=== PATIENT | female | born 1960 | race Caucasian/White ===

== ENCOUNTER 2016-08-24 02:00 | Emergency (ER) | payer OTHER ==
[2016-08-24 02:08] VITALS: BP 129/88
[2016-08-24 02:22] LABS: BILIRUBIN,URINE NEGATIVE (NEGATIVE); UA w/ MICROSCOPIC CHARGE YES
[2016-08-24 02:26] LABS: WBC,URINE >25 /HPF (0-5)
[2016-08-24 02:27] LABS: UR CULTURE IF IND INDICATED
[2016-08-24] MEDS ORDERED: SULFAM/TRIM 800/160 Prepack 2 PO ONE ×2 (02:29→02:32)
[2016-08-24] MEDS ORDERED: PHENAZOPYRIDINE 100 MG TABLETS (Prepack) PO ONE (02:32)
--- NOTE | 2016-08-24 02:32 | ED Physician Documentation ---
PD HPI FEMALE - Stated complaint Stated Complaint: FEMALE - Chief complaint Chief Complaint: General - History obtained from History obtained from: Patient - History of Present Illness Timing - onset: Enter time (0), Last night Timing - duration: Hours Timing - details: Abrupt onset, Still present Associated symptoms: Dysuria, Urinary frequency Contributing factors: No: Similar symptoms before: Diagnosis (UTI) Recently seen: Not recently seen - Additional information Additional information: 56 y/o female awoke with acute bladder spasm and painful urination that awoke her from sleep. She has not had back pain nausea or fever with this. Review of Systems Constitutional: reports: Chills. denies: Fever Eyes: denies: Decreased vision Ears: denies: Ear pain Nose: denies: Congestion Throat: denies: Sore throat Cardiac: denies: Chest pain / pressure Respiratory: denies: Dyspnea, Cough GI: reports: Diarrhea. denies: Abdominal Pain, Nausea, Vomiting, Constipation : reports: Dysuria, Frequency Skin: denies: Rash Musculoskeletal: denies: Neck pain, Back pain PD PAST MEDICAL HISTORY - Past Medical History Past Medical History: Yes - Past Surgical History Past Surgical History: Yes General: Appendectomy - Present Medications Home Medications: Ambulatory Orders Medication Instructions Recorded Confirmed Eszopiclone [Lunesta] 3 mg PO DAILY 08/24/16 08/24/16 Levothyroxine Sodium [Synthroid] 100 mcg PO DAILY 08/24/16 08/24/16 Nortriptyline [Pamelor] 25 mg PO DAILY 08/24/16 08/24/16 Sulfamethoxazole/Trimethoprim 1 each PO BID #10 tablet 08/24/16 [Sulfamethoxazole-Tmp Ds Tablet] - Allergies Allergies/Adverse Reactions: Allergies Allergy/AdvReac Type Severity Reaction Status Date / Time iodine Allergy Rash Verified 08/24/16 02:09 Penicillins Allergy Anaphylaxis Verified 08/24/16 02:09 silver Allergy Rash Verified 08/24/16 02:09 - Social History Does the pt smoke?: No Smoking Status: Never smoker Does the pt drink ETOH?: Yes ETOH Use: Wine Does the pt have substance abuse?: No - Immunizations Immunizations are current?: Yes - POLST Patient has POLST: No PD ED PE NORMAL - Vitals Vital signs reviewed: Yes (hypertensive ) - General General: Alert and oriented X 3, No acute distress, Well developed/nourished - HEENT HEENT: Atraumatic - Respiratory Respiratory: No respiratory distress - Back Back: No CVA TTP, No spinal TTP - Derm Derm: Normal color, Warm and dry, No rash - Extremities Extremities: No deformity, No edema - Neuro Neuro: No motor deficit, No sensory deficit - Psych Psych: Normal mood, Normal affect Results - Vitals Vitals: Vital Signs - 24 hr 08/24/16 02:04 Temperature 36.5 C Heart Rate 71 Respiratory 16 Rate Blood Pressure 129/88 H O2 Saturation 100 Oxygen O2 Source Room air - Labs Labs: Laboratory Tests 08/24/16 02:15 Urine Color YELLOW Urine Clarity CLEAR Urine pH 7.0 Ur Specific [place] Cbc Base <=1.005 Urine Protein NEGATIVE Urine Glucose (UA) NEGATIVE Urine Ketones NEGATIVE Urine Occult Blood LARGE H Urine Nitrite NEGATIVE Urine Bilirubin NEGATIVE Urine Urobilinogen 0.2 (NORMAL) Ur Leukocyte Esterase MODERATE H Urine RBC 6-10 H Urine WBC >25 H Ur Squamous Epith Cells RARE Squamous Urine Bacteria Few Ur Microscopic Review INDICATED Urine Culture Comments INDICATED PD MEDICAL DECISION MAKING - ED course Complexity details: reviewed results, considered differential, d/w patient ED course: 56 y/o female with acute UTI has work to blame for not being able to get to the bathroom in a timely fashion. She is given a pre-rebecca of pyridium septra. Departure - Departure Disposition: 01 Home, Self Care Clinical Impression: Urinary tract infection Qualifiers: Urinary tract infection type: acute cystitis Hematuria presence: with hematuria Qualified Code(s): N30.01 - Acute cystitis with hematuria Condition: Stable Instructions: ED UTI Cystitis Female Follow-Up: Delmar Traore MD [Primary Care Provider] - Prescriptions: Sulfamethoxazole/Trimethoprim [Sulfamethoxazole-Tmp Ds Tablet] 1 each PO BID # 10 tablet
[2016-08-24] MEDS ORDERED: PHENAZOPYRIDINE 100 MG TABLETS (Prepack) PO SCH (06:00)
== END 2016-08-24 02:43 | disposition home or self-care (01) ==
LOC: ED 02:00
DX: N30.01 Acute cystitis with hematuria (principal)
CPT/HCPCS: 81001; 81003; 87077; 87086; 99283

== ENCOUNTER 2017-06-08 08:27 | Emergency (ER) | payer OTHER ==
[2017-06-08 09:44] LABS: BASOPHILS # (AUTO) 0.1 10^3/uL (0.0-0.1); BASOPHILS % (AUTO) 0.6 %; EOSINOPHILS # (AUTO) 0.3 10^3/uL (0.0-0.7); EOSINOPHILS % (AUTO) 2.7 %; HGB - HEMOGLOBIN 12.8 g/dL (12.0-16.0); LYMPHOCYTES # (AUTO) 2.8 10^3/uL (1.5-3.5); LYMPHOCYTES % (AUTO) 24.4 %; MEAN CORPUSCULAR HEMOGLOBIN 29.6 pg (27.0-31.0); MEAN CORPUSCULAR HGB CONC 34.1 g/dL (32.0-36.0); MEAN PLATELET VOLUME 8.6 fL (7.9-10.8); MONOCYTES # (AUTO) 0.8 10^3/uL (0.0-1.0); MONOCYTES % (AUTO) 7.1 %; NEUTROPHILS # (AUTO) 7.4 10^3/uL (1.5-6.6); NEUTROPHILS % (AUTO) 65.2 %; PLT - PLATELET COUNT 270 10^3/uL (130-450); RED BLOOD COUNT 4.33 10^6/uL (4.20-5.40); RED CELL DISTRIBUTION WIDTH 12.2 % (12.0-15.0); WHITE BLOOD COUNT 11.4 x10^3/uL (4.8-10.8)
[2017-06-08 09:52] LABS: ALBUMIN 4.6 g/dL (3.2-5.5); ALBUMIN/GLOBULIN RATIO 1.5 (1.0-2.2); BILIRUBIN,TOTAL 0.5 mg/dL (0.2-1.0); CALCIUM 9.2 mg/dL (8.5-10.3); CREATININE 0.7 mg/dL (0.4-1.0); TOTAL PROTEIN 7.7 g/dL (6.7-8.2)
--- NOTE | 2017-06-08 10:06 | XRAY Report ---
EXAM: CHEST RADIOGRAPHY EXAM DATE: 06/08/2017 09:58 AM. CLINICAL HISTORY: Acute onset right chest pain. Cough. COMPARISON: None. TECHNIQUE: 2 views. FINDINGS: Lungs/Pleura: No focal opacities evident. No pleural effusion. No pneumothorax. Normal volumes. Mediastinum: Heart size is normal. Aorta is mildly tortuous. Other: Degenerative changes of the thoracic spine. No acute osseous abnormalities. Levoscoliosis of t he thoracic spine. IMPRESSION: 1. No acute disease in the chest. [facility] Referring Provider Line: [phone] SITE ID: [id number]
--- NOTE | 2017-06-08 10:12 | ED Physician Documentation ---
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 denies: Neck pain, Back pain , Extremity swelling Endocrine: denies: Easy bruising / bleeding Immunocompromised: denies: Immunocompromised PD PAST MEDICAL HISTORY - Past Surgical History Past Surgical History: Yes General: Appendectomy - Present Medications Home Medications: Ambulatory Orders Medication Instructions Recorded Confirmed Eszopiclone [Lunesta] 3 mg PO DAILY 08/24/16 08/24/16 Levothyroxine Sodium [Synthroid] 100 mcg PO DAILY 08/24/16 08/24/16 Indomethacin [Indocin] 25 mg PO TIDWM PRN #21 capsule 06/08/17 - Allergies Allergies/Adverse Reactions: Allergies Allergy/AdvReac Type Severity Reaction Status Date / Time iodine Allergy Rash Verified 06/08/17 08:38 Penicillins Allergy Anaphylaxis Verified 06/08/17 08:38 silver Allergy Rash Verified 06/08/17 08:38 - Social History Does the pt smoke?: No Smoking Status: Never smoker Does the pt drink ETOH?: Yes Does the pt have substance abuse?: No - Immunizations Immunizations are current?: Yes - POLST Patient has POLST: No PD ED PE NORMAL - Vitals Vital signs reviewed: Yes - HEENT HEENT: Atraumatic - Neck Neck: Supple, no meningeal sign - Cardiac Cardiac: RRR - Respiratory Respiratory: No respiratory distress, Clear bilaterally - Abdomen Abdomen: Soft, Non tender - Derm Derm: Normal color - Extremities Extremities: No edema, No calf tenderness / cord - Neuro Neuro: Alert and oriented X 3 Results - Vitals Vitals: Vital Signs - 24 hr 03/29/18 03/29/18 03/29/18 08:31 09:13 11:09 Temperature 36.5 C 37.2 C Heart Rate 81 78 Respiratory 16 16 Rate Blood Pressure 137/88 H 121/78 Blood Pressure 126/82 H [Left] Blood Pressure 126/83 H [Right] O2 Saturation 99 99 06/08/17 13:26 Temperature Heart Rate 80 Respiratory 12 Rate Blood Pressure 120/81 H Blood Pressure [Left] Blood Pressure [Right] O2 Saturation 100 Oxygen O2 Source Room air - EKG (time done) 0837 Rate: Rate (enter#) (77) Rhythm: NSR [place]: Normal Intervals: Normal DC QRS: Normal Ischemia: Normal ST segments - Labs Labs: Laboratory Tests 06/08/17 06/08/17 06/08/17 09:25 09:25 09:25 WBC 11.4 H RBC 4.33 Hgb 12.8 Hct 37.7 MCV 87.0 MCH 29.6 MCHC 34.1 RDW 12.2 Plt Count 270 MPV 8.6 Neut # 7.4 H Lymph # 2.8 [place] # 0.8 Eos # 0.3 Baso # 0.1 Absolute Nucleated RBC 0.00 Nucleated RBC % 0.0 D-Dimer Sodium 137 Potassium 3.5 Chloride 102 Carbon Dioxide 29 Anion Gap 6.0 BUN 14 Creatinine 0.7 Estimated GFR (MDRD) 87 L Glucose 99 Calcium 9.2 Total Bilirubin 0.5 AST 25 ALT 21 Alkaline Phosphatase 69 Troponin I < 0.04 Total Protein 7.7 Albumin 4.6 Globulin 3.1 Albumin/Globulin Ratio 1.5 Lipase 30 06/08/17 06/08/17 12:20 13:29 WBC RBC Hgb Hct MCV MCH MCHC RDW Plt Count MPV Neut # Lymph # [place] # Eos # Baso # Absolute Nucleated RBC Nucleated RBC % D-Dimer < 200.0 L Sodium Potassium Chloride Carbon Dioxide Anion Gap BUN Creatinine Estimated GFR (MDRD) Glucose Calcium Total Bilirubin AST ALT Alkaline Phosphatase Troponin I < 0.04 Total Protein Albumin Globulin Albumin/Globulin Ratio Lipase - Rads (name of study) CXR Radiology: See rad report (NACPD) CT chest Radiology: See rad report (clear lungs, no adenopathy, nl heart size, no effusion, no hemaotma, degen changes) PD MEDICAL DECISION MAKING - ED course ED course: R sided pleurisy no pna on CXR or CT pt with all to iodine so non con CT which was nl and neg d dimer - feel PE adequately ruled out no aneurysm on CT pain is pressure in nature so less likely to be dissection - as above iodine allergy precludes angio but non con CT nl no GB TTP on exam will check a 2nd trop but seems pt has pleurisy NOS will tx symptomatically and dc Departure - Departure Disposition: Home, Self Care Clinical Impression: Pleurisy Condition: Good Instructions: ED Chest Pain Pleurisy Prescriptions: Indomethacin [Indocin] 25 mg PO TIDWM PRN #21 capsule PRN Reason: Pain Comments: All of your tests came back reassuring The EKG and two rounds of blood tests for your heart do not suggest a heart attack. The xray and CT do not show a collapsed lung, a lung infection, or fluid build up around the lungs or heart The blood work and CT also do not indicate a blood clot in your lungs And your abdomen was non tender so i do not think this is an abdominal problem such as gallstones It sounds like you have pleurisy which is inflammation of the lining around chest cavity - it can be very painful but is not dangerous I think it is safe for you to go home with anti-inflammatory pain medications and a note to be off work and rest for a few days. Pleas follow up with your PMD for a recheck if not better by Monday. Return to the ER if worse Forms: Activity restrictions
--- NOTE | 2017-06-08 12:58 | CT Report ---
EXAM: CT CHEST EXAM DATE: 06/08/2017 12:37 PM. CLINICAL HISTORY: Shortness of air. Chest pain for 2 days. Shortness of breath. Iodine allergy. COMPARISONS: 06/08/2017. TECHNIQUE: Routine helical CT imaging was performed through the chest. IV contrast: None. Reconstruct ions: Coronal and sagittal. In accordance with CT protocol optimization, one or more of the following dose reduction techniques w ere utilized for this exam: automated exposure control, adjustment of mA and/or KV based on patient s ize, or use of iterative reconstructive technique. FINDINGS: Lungs/Pleura: No nodules, bronchial thickening, consolidation, or edema. Pulmonary vasculature is nor mal. No pericardial or pleural effusion. No pneumothorax. Mediastinum: The visualized thyroid gland is unremarkable. Heart size is normal. No enlarged mediasti nal or hilar lymph nodes are seen on these unenhanced images. No mediastinal hematoma. Thoracic aorta is normal in caliber. Bones: Degenerative changes of the thoracic spine. No acute osseous abnormalities. No bony lesions. Visualized Abdomen: Included portions of the liver, gallbladder, spleen, pancreas, adrenals and kidne ys are unremarkable. Included portions of the stomach, small bowel and colon are unremarkable. Other: None. IMPRESSION: 1. Clear lungs. No consolidation. 2. No thoracic adenopathy. 3. No mediastinal hematoma. Normal heart size. 4. Mild degenerative changes of the thoracic spine. No acute osseous abnormalities. [facility] Referring Provider Line: [phone] SITE ID: [id number]
[2017-06-08] MEDS ORDERED: KETOROLAC 60 MG/2 ML VIAL IVP STA (13:18)
[2017-06-08] MEDS ORDERED: oxyCOD/ACETAMIN 5 MG/325 MG TABLET PO STA (14:28)
[2017-06-08 14:53] VITALS: BP 127/77
== END 2017-06-08 14:51 | disposition home or self-care (01) ==
LOC: ED 08:27
DX: R09.1 Pleurisy (principal)
CPT/HCPCS: 36415; 71046; 71250; 80053; 83690; 84484; 85025; 85379; 93005; 96374; 99283; 99284; A9270

== ENCOUNTER 2018-05-14 08:57 | Emergency (ER) | payer OTHER ==
--- NOTE | 2018-05-14 10:19 | ED Physician Documentation ---
PD HPI ABD PAIN - Stated complaint Stated Complaint: PAINFUL TO WALK/STAND - Chief complaint Chief Complaint: Abd Pain - History obtained from History obtained from: Patient - History of Present Illness Timing - onset: How many days ago Timing - details: Abrupt onset, Still present Quality: Aching, Pain Location: RLQ Radiation: No: Lower back Improved by: No: Eating Worsened by: Moving (with walking, and with leg flexion). No: Eating Associated symptoms: Other (denies injury to leg nor abdomen). No: Fever, Nausea, Vomiting, Diarrhea, Constipation, Dysuria, Chest pain Similar symptoms before: Has not had sx before Recently seen: Not recently seen Review of Systems Constitutional: denies: Fever Nose: denies: Rhinorrhea / runny nose, Congestion Throat: denies: Sore throat Respiratory: denies: Cough GI: reports: Abdominal Pain. denies: Nausea, Constipation, Diarrhea : denies: Dysuria, Frequency, Discharge, Vaginal bleeding Skin: denies: Rash, Lesions Neurologic: denies: Focal weakness, Near syncope PD PAST MEDICAL HISTORY - Past Medical History Cardiovascular: None Respiratory: None Neuro: None Endocrine/Autoimmune: HyPOthyroidism GI: None - Past Surgical History Past Surgical History: Yes General: Appendectomy - Present Medications Home Medications: Ambulatory Orders Medication Instructions Recorded Confirmed Eszopiclone [Lunesta] 3 mg PO DAILY PM 08/24/16 05/14/18 Levothyroxine Sodium [Synthroid] 100 mcg PO DAILY 08/24/16 05/14/18 Dexamethasone [Decadron] 4 mg PO DAILY #5 tablet 05/14/18 Naproxen 500 mg PO BID #20 tablet 05/14/18 Tramadol HCl 50 mg PO Q6H PRN #25 tablet 05/14/18 - Allergies Allergies/Adverse Reactions: Allergies Allergy/AdvReac Type Severity Reaction Status Date / Time iodine Allergy Rash Verified 05/14/18 09:41 Penicillins Allergy Anaphylaxis Verified 05/14/18 09:41 silver Allergy Rash Verified 05/14/18 09:41 - Social History Does the pt smoke?: No Smoking Status: Never smoker Does the pt drink ETOH?: Yes Does the pt have substance abuse?: No - Immunizations Immunizations are current?: Yes - POLST Patient has POLST: No PD ED PE NORMAL - Vitals Vital signs reviewed: Yes - General General: Alert and oriented X 3, Well developed/nourished - HEENT HEENT: Ears normal, Pharynx benign - Neck Neck: Supple, no meningeal sign, No adenopathy - Cardiac Cardiac: RRR, No murmur - Respiratory Respiratory: Clear bilaterally - Abdomen Abdomen: Normal bowel sounds, Soft, Non distended, No organomegaly, Other (RLQ tender with guarding, but no percussion tenderness. No inguinal hernia nor adenopathy. ) - Female Female : Deferred - Rectal Rectal: Deferred - Back Back: No CVA TTP - Derm Derm: Normal color, Warm and dry, No rash Results - Vitals Vitals: Vital Signs - 24 hr 05/14/18 05/14/18 05/14/18 09:11 11:23 12:38 Temperature 36.4 C L 36.4 C L Heart Rate 98 89 75 Respiratory 14 18 16 Rate Blood Pressure 116/82 H 113/74 103/76 O2 Saturation 97 92 99 Oxygen O2 Source Room air - Labs Labs: Laboratory Tests 05/14/18 05/14/18 10:10 10:10 WBC 10.0 RBC 4.39 Hgb 13.1 Hct 38.4 MCV 87.3 MCH 29.9 MCHC 34.2 RDW 12.9 Plt Count 247 MPV 8.4 Neut # (Auto) 7.6 H Lymph # (Auto) 1.6 [place] # (Auto) 0.7 Eos # (Auto) 0.0 Baso # (Auto) 0.1 Absolute Nucleated RBC 0.00 Nucleated RBC % 0.0 Sodium 139 Potassium 3.9 Chloride 102 Carbon Dioxide 26 Anion Gap 11.0 BUN 13 Creatinine 0.8 Estimated GFR (MDRD) 74 L Glucose 101 H Calcium 9.3 Total Bilirubin 1.3 H AST 20 ALT 17 Alkaline Phosphatase 60 Total Protein 7.9 Albumin 4.6 Globulin 3.3 Albumin/Globulin Ratio 1.4 Lipase 29 - Rads (name of study) abd/pelvic CT Radiology: Prelim report reviewed (no acute process seen), See rad report PD MEDICAL DECISION MAKING - ED course Complexity details: reviewed results (normal CT. Diverticula without -itis. s/p appy. no stones, mass, abscess), considered differential (s/p appy, so not that, but consider diverticulitis, kidney stone, UTI, psoas abscess or hematoma, mass, etc. ), d/w patient Departure - Departure Disposition: 01 Home, Self Care Clinical Impression: Right lower quadrant abdominal pain Psoas muscle strain Qualifiers: Encounter type: initial encounter Laterality: right Qualified Code(s): S76.011A - Strain of muscle, fascia and tendon of right hip, initial encounter Condition: Stable Record reviewed to determine appropriate education?: Yes Prescriptions: Dexamethasone [Decadron] 4 mg PO DAILY #5 tablet Naproxen 500 mg PO BID #20 tablet Tramadol HCl 50 mg PO Q6H PRN #25 tablet PRN Reason: Pain Comments: This seems to be a muscle caused pain in the hip and low abdomen. I would have you take some anti-inflammatory such as naproxen twice daily and can combine that with Decadron steroid anti-inflammatory for a few days. Add Tylenol and/or tramadol if needed for pain. Activity as able. Recheck if not improving over the next several days to week. Discharge Date/Time: 05/14/18 12:50
[2018-05-14 10:24] LABS: BASOPHILS # (AUTO) 0.1 10^3/uL (0.0-0.1); BASOPHILS % (AUTO) 0.5 %; EOSINOPHILS % (AUTO) 0.5 %; HGB - HEMOGLOBIN 13.1 g/dL (12.0-16.0); LYMPHOCYTES # (AUTO) 1.6 10^3/uL (1.5-3.5); LYMPHOCYTES % (AUTO) 16.4 %; MEAN CORPUSCULAR HEMOGLOBIN 29.9 pg (27.0-31.0); MEAN CORPUSCULAR HGB CONC 34.2 g/dL (32.0-36.0); MEAN CORPUSCULAR VOLUME 87.3 fL (81.0-99.0); MEAN PLATELET VOLUME 8.4 fL (7.9-10.8); MONOCYTES # (AUTO) 0.7 10^3/uL (0.0-1.0); MONOCYTES % (AUTO) 6.9 %; NEUTROPHILS # (AUTO) 7.6 10^3/uL (1.5-6.6); NEUTROPHILS % (AUTO) 75.7 %; PLT - PLATELET COUNT 247 10^3/uL (130-450); RED BLOOD COUNT 4.39 10^6/uL (4.20-5.40); RED CELL DISTRIBUTION WIDTH 12.9 % (12.0-15.0)
[2018-05-14 10:36] LABS: ALBUMIN 4.6 g/dL (3.2-5.5); ALBUMIN/GLOBULIN RATIO 1.4 (1.0-2.2); BILIRUBIN,TOTAL 1.3 mg/dL (0.2-1.0); CREATININE 0.8 mg/dL (0.4-1.0); TOTAL PROTEIN 7.9 g/dL (6.7-8.2)
[2018-05-14] MEDS ORDERED: KETOROLAC 15 MG/ML VIAL IVP STA (10:50)
[2018-05-14] MEDS ORDERED: HYDROmorphone 1 MG/ML CARPUJECT IVP STA (10:50)
--- NOTE | 2018-05-14 11:44 | CT Report ---
Reason: RLQ pain for 2 days, hurts to walk Procedure Date: 05/14/2018 Accession Number: [id number] / [id number] Procedure: CT - Abdomen/Pelvis WO CPT Code: FULL RESULT: EXAM: CT ABDOMEN AND PELVIS EXAM DATE: 05/14/2018 11:09 AM. CLINICAL HISTORY: RLQ pain for 2 days, hurts to walk. COMPARISONS: None. TECHNIQUE: Routine helical CT imaging was performed through the abdomen and pelvis. IV contrast: None. Enteric contrast: None. Reconstructions: Coronal and sagittal. In accordance with CT protocol optimization, one or more of the following dose reduction techniques were utilized for this exam: automated exposure control, adjustment of mA and/or KV based on patient size, or use of iterative reconstructive technique. FINDINGS: Lung Bases: Lung bases are clear. No pleural or pericardial effusions. No cardiac enlargement. Small hiatal hernia noted. Liver: Normal. No masses. Gallbladder/Bile Ducts: Unremarkable. Spleen: Normal. Pancreas: Normal. Adrenal Glands: Normal. Kidneys: Normal. No masses or hydronephrosis. Peritoneal Cavity/Bowel: Normal. No free fluid, free air or adenopathy. No masses or acute inflammatory process. There are multiple diverticula seen which most severely affect the sigmoid colon. No wall thickening or adjacent inflammation seen. No obstruction noted. Appendix not seen. No right lower quadrant inflammation. Pelvic Organs: Normal. The bladder and visualized pelvic organs are within normal limits. Vasculature: No aneurysms or other significant abnormality. Bones: No significant abnormality. Other: None. IMPRESSION: 1. Appendix not seen. No secondary signs of acute appendicitis. Diverticulosis. 2. No acute abnormality noted. [facility]
[2018-05-14] MEDS ORDERED: DEXAMETHASONE 10 MG/ML VIAL IVP STA (12:20)
[2018-05-14 12:40] VITALS: BP 103/76
[2018-05-14 13:01] LABS: CALCIUM 9.3 mg/dL (8.5-10.3)
== END 2018-05-14 12:50 | disposition home or self-care (01) ==
LOC: ED 08:57
DX: S76.011A Strain of muscle, fascia and tendon of right hip, initial encounter (principal); X58.XXXA Exposure to other specified factors, initial encounter; R10.31 Right lower quadrant pain; Z90.49 Acquired absence of other specified parts of digestive tract; K57.30 Diverticulosis of large intestine without perforation or abscess without bleeding
CPT/HCPCS: 36415; 74176; 80053; 83690; 85025; 96374; 96375; 99283; J1170; 81001; 81003; 87086

== ENCOUNTER 2019-11-22 10:46 | Emergency (ER) | payer OTHER ==
--- NOTE | 2019-11-22 11:32 | ED Physician Documentation ---
History of Present Illness - Stated complaint Stated Complaint: LT BREAST PX - Chief complaint Chief Complaint: General - History obtained from History obtained from: Patient - History of Present Illness Timing: How many days ago (4) - Additonal information Additional information: Previously well 59-year-old female has developed some itching under her nipple on the left breast about 2 weeks ago and 4 days ago she has developed an area of discoloration under the breast which has now changed to a yellowish color and a dark purple color she is concerned about breast cancer. She does not have a palpable mass and she gets regular mammograms. She last had a mammogram 1 year ago. There is no change to the skin of the nipple itself and no discharge from the nipple. Review of Systems Constitutional: denies: Fever Ears: denies: Ear pain Nose: denies: Congestion Throat: denies: Sore throat Cardiac: denies: Chest pain / pressure, Palpitations Respiratory: denies: Dyspnea, Cough GI: denies: Abdominal Pain, Nausea, Vomiting : denies: Dysuria PD PAST MEDICAL HISTORY - Past Medical History Cardiovascular: None, High cholesterol Respiratory: None Neuro: None Endocrine/Autoimmune: HyPOthyroidism GI: None ELEVATOR BUILDER: None : None Psych: None Musculoskeletal: Rheumatoid arthritis Derm: None - Past Surgical History Past Surgical History: Yes General: Appendectomy - Present Medications Home Medications: Ambulatory Orders Medication Instructions Recorded Confirmed Eszopiclone [Lunesta] 3 mg PO DAILY PM 08/24/16 05/14/18 Levothyroxine Sodium [Synthroid] 100 mcg PO DAILY 08/24/16 05/14/18 Naproxen 500 mg PO BID #20 tablet 05/14/18 Tramadol HCl 50 mg PO Q6H PRN #25 tablet 05/14/18 dexAMETHasone [Decadron] 4 mg PO DAILY #5 tablet 05/14/18 Terbinafine HCl [Terbinafine] 15 gm TP DAILY #15 cream..g. 11/22/19 - Allergies Allergies/Adverse Reactions: Allergies Allergy/AdvReac Type Severity Reaction Status Date / Time iodine Allergy Rash Verified 11/22/19 10:56 Penicillins Allergy Anaphylaxis Verified 11/22/19 10:56 silver Allergy Rash Verified 11/22/19 10:56 - Social History Does the pt smoke?: No Smoking Status: Never smoker Does the pt drink ETOH?: Yes ETOH Use: Liquor Does the pt have substance abuse?: No - Immunizations Immunizations are current?: Yes - POLST Patient has POLST: No PD ED PE NORMAL - Vitals Vital signs reviewed: Yes (hypertensive ) - General General: Alert and oriented X 3, No acute distress, Well developed/nourished - HEENT HEENT: Atraumatic, PERRL, EOMI - Respiratory Respiratory: No respiratory distress, Other (The left breast has a 2cm round bruise just below the nipple with yellow coloration on top of dark jose maria consistent with a bruise. The skin under the breast is lichenified and flaky in a C shape under the nipple consistent with a fungal/yeast dermatitis. 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, No motor deficit, No sensory deficit, Normal speech Eye Opening: Spontaneous Motor: Obeys Commands Verbal: Oriented GCS Score: 15 - Psych Psych: Normal mood, Normal affect Results - Vitals Vitals: Vital Signs - 24 hr 11/22/19 11/22/19 10:56 11:04 Temperature 36.2 C L Heart Rate 80 66 Respiratory 16 16 Rate Blood Pressure 132/95 H 119/97 H O2 Saturation 100 98 Oxygen O2 Source Room air PD MEDICAL DECISION MAKING - ED course Complexity details: re-evaluated patient, considered differential, d/w patient ED course: 59-year-old female with a bruise to the left breast with no idea how she got this bruise also appears to have some lichenified skin in the same area. She states this is been itchy for about 2 weeks and I suspect this is a fungal or yeast infection and we will put her on some terbinafine cream. Departure - Departure Disposition: 01 Home, Self Care Clinical Impression: Bruise of breast, Fungal dermatitis Condition: Stable Instructions: ED Hematoma, ED Infec Skin Fungal Tinea Follow-Up: MONIQUE VIGIL DO [Primary Care Provider] - Prescriptions: Terbinafine HCl [Terbinafine] 15 gm TP DAILY #15 cream..g.
[2019-11-22 12:25] VITALS: BP 119/86
== END 2019-11-22 12:28 | disposition home or self-care (01) ==
LOC: ED 10:46
DX: S20.02XA Contusion of left breast, initial encounter (principal); X58.XXXA Exposure to other specified factors, initial encounter; B36.9 Superficial mycosis, unspecified
CPT/HCPCS: 99282; 99284

== ENCOUNTER 2020-05-13 05:17 | Emergency (ER) | payer OTHER ==
--- NOTE | 2020-05-13 05:21 | ED Physician Documentation ---
PD HPI UPPER EXT INJURY - Stated complaint Stated Complaint: L SHOULDER PX - History obtained from History obtained from: Patient - History of Present Illness Location: Left, Shoulder, Arm, Other (scapular and left side of neck) Type of injury: No: Fall, Twist Where injury occurred: Home Timing - onset: Yesterday Timing - duration: Days (2) Timing - details: Gradual onset, Still present Improved by: No: Rest (hurts all the time, even with rest, worse with moving.) Worsened by: Moving (left shoulder), Palpating (left scapluar manolo) Associated symptoms: No: Weakness, Numbness, Tingling (states there is a burning sensation in the distribution of the pain area.) Similar symptoms before: Has not had sx before Recently seen: Not recently seen Review of Systems Constitutional: denies: Fever, Chills Nose: denies: Rhinorrhea / runny nose, Congestion Throat: denies: Sore throat Respiratory: denies: Cough GI: denies: Abdominal Pain, Nausea, Vomiting Skin: denies: Rash, Lesions Neurologic: denies: Focal weakness, Numbness PD PAST MEDICAL HISTORY - Past Medical History Cardiovascular: None, High cholesterol Respiratory: None Neuro: None Endocrine/Autoimmune: HyPOthyroidism GI: None WOOD FINISHER: None : None Psych: None Musculoskeletal: Rheumatoid arthritis Derm: None - Past Surgical History Past Surgical History: Yes General: Appendectomy - Present Medications Home Medications: Ambulatory Orders Medication Instructions Recorded Confirmed Eszopiclone [Lunesta] 3 mg PO DAILY PM 08/24/16 05/13/20 Levothyroxine Sodium [Synthroid] 100 mcg PO DAILY 08/24/16 05/13/20 HYDROcod/ACETAM 5/325 [[place] 5/325] 1 ea PO Q6H PRN #20 tablet 05/13/20 Statin 1 mg PO DAILY 05/13/20 Valacyclovir HCl [Valtrex] 1,000 mg PO TID #15 tablet 05/13/20 dexAMETHasone [Decadron] 4 mg PO DAILY #7 tablet 05/13/20 methocarbamoL [Robaxin] 500 mg PO Q6H PRN #20 tablet 05/13/20 - Allergies Allergies/Adverse Reactions: Allergies Allergy/AdvReac Type Severity Reaction Status Date / Time iodine Allergy Rash Verified 05/13/20 05:27 Penicillins Allergy Anaphylaxis Verified 05/13/20 05:27 silver Allergy Rash Verified 05/13/20 05:27 - Social History Does the pt smoke?: No Smoking Status: Never smoker Does the pt drink ETOH?: Yes Does the pt have substance abuse?: No - Immunizations Immunizations are current?: Yes - POLST Patient has POLST: No PD ED PE NORMAL - Vitals Vital signs reviewed: Yes - General General: Alert and oriented X 3, Well developed/nourished, Other (appears in moderate pain from scapula/shoulder.) - Neck Neck: Supple, no meningeal sign, No bony TTP (tender in soft tissue left lateral neck, suprascapular area and posterior left shoulder to posterior upper arm. Soft tissue tender in those areas. No noted rash. ), No adenopathy - Cardiac Cardiac: RRR, No murmur - Respiratory Respiratory: Clear bilaterally - Derm Derm: Normal color, Warm and dry, No rash - Neuro Neuro: Alert and oriented X 3, No motor deficit, No sensory deficit, Normal speech Results - Vitals Vitals: Vital Signs - 24 hr 05/13/20 05/13/20 05/13/20 05:24 05:43 05:55 Temperature 36.3 C L Heart Rate 88 Respiratory 17 16 16 Rate Blood Pressure 112/70 O2 Saturation 98 Oxygen O2 Source Room air Departure - Departure Disposition: 01 Home, Self Care Clinical Impression: Pain of left scapula, Neuralgia Condition: Stable Record reviewed to determine appropriate education?: Yes Prescriptions: dexAMETHasone [Decadron] 4 mg PO DAILY #7 tablet HYDROcod/ACETAM 5/325 [[place] 5/325] 1 ea PO Q6H PRN #20 tablet PRN Reason: Pain methocarbamoL [Robaxin] 500 mg PO Q6H PRN #20 tablet PRN Reason: Spasms Valacyclovir HCl [Valtrex] 1,000 mg PO TID #15 tablet Comments: This sounds like a nerve irritation which could be mechanical (pinched nerve or muscular) or could be inflammatory/infectious, such as early shingles. It sounds suspicious for early shingles actually. Use Decadron anti-inflammatory daily for the next week. Add Robaxin muscle relaxant 3 times a day for spasms and stiffness. Add Tylenol every 4-6 hours if needed for pain or hydrocodone if needed for worse pain. Activity as tolerated. Also take Yue acyclovir 3 times a day for 5 days for presumption of early shingles. Anticipate developing some mild rash in the next couple of days if that is the case. If this is more mechanical nerve irritation such as muscular or pinched nerve, it likely will diminish over the next several days and resolved in a week or so commonly. Shingles will typically develop a rash over the 3rd-4th day and may last a few weeks before its resolved. Discharge Date/Time: 05/13/20 06:05
[2020-05-13 05:26] VITALS: BP 112/70
[2020-05-13] MEDS ORDERED: CHERRY SYRUP 10 ML UDC PO ONE (05:44)
[2020-05-13] MEDS ORDERED: ACETAMINOPHEN 325 MG TABLET PO STA (05:44)
[2020-05-13] MEDS ORDERED: methocarbamoL 500 MG TABLET PO STA (05:44)
[2020-05-13] MEDS ORDERED: DEXAMETHASONE 10 MG/ML VIAL PO STA (05:44)
[2020-05-13] MEDS ORDERED: HYDROcod/ACET 5/325 Prepack 4 PO STA (05:44)
[2020-05-13] MEDS ORDERED: valACYclovir 500 MG TABLET PO STA (05:45)
== END 2020-05-13 06:05 | disposition home or self-care (01) ==
LOC: ED 05:17
DX: M25.512 Pain in left shoulder (principal); M54.2 Cervicalgia; M79.2 Neuralgia and neuritis, unspecified; M06.9 Rheumatoid arthritis, unspecified
CPT/HCPCS: 99283; 99284; A9270

== ENCOUNTER 2022-09-06 08:52 | Outpatient (CLI) | payer OTHER ==
--- NOTE | 2022-09-14 10:13 | Mammography Report ---
BILATERAL DIGITAL SCREENING MAMMOGRAM 3D/2D: 09/06/2022 CLINICAL: Routine screening. Comparison is made to exams dated: 06/30/2021 mammogram - [facility], 09/11/2015 mammogram, and 05/06 mammogram - outside location. There are scattered areas of fibroglandular density in both breasts (category b / 25%-50% glandular t issue). No significant masses, calcifications, or other findings are seen in either breast. There has been no significant interval change. IMPRESSION: NEGATIVE There is no mammographic evidence of malignancy. A 1 year screening mammogram is recommended. Based on the Tyrer Cuzick model (a risk assessment model) the patients lifetime risk is 6.2% and her 10 year risk is 2.5%. According to the ACR, ACS, and NCCN guidelines, an annual breast MRI exam heber g with mammogram is recommended if the patients lifetime risk is 20% or greater. This exam was interpreted at Station ID: [id number]. NOTE: For mammograms, a report in lay terms will be sent to the patient. Approximately 15% of breast malignancies will not be visualized mammographically. In the management of a palpable breast mass, a negative mammogram must not discourage biopsy of a clinically suspicious lesion. Electronically Signed By: Haja bailey/nadine:09/12/2022 19:17:54 letter sent: No_Letter ACR BI-RADS Category 1: Negative 3341F PARENCHYMAL PATTERN: (A) - The breast(s) demonstrate(s) scattered fibroglandular densities. BI-RADS CATEGORY: (1) - 1 Mammogram [id number] 1 year screening LATERALITY: (B)
== END 2022-09-06 08:53 | disposition home or self-care (01) ==
LOC: DI.N 08:52
PROVIDERS: ATTEND Physician Assistant
DX: Z12.31 Encounter for screening mammogram for malignant neoplasm of breast (principal)

== ENCOUNTER 2022-10-31 07:49 | Emergency (ER) | payer OTHER ==
[2022-10-31] MEDS ORDERED: BENZONATATE 100 MG CAPSULE PO STA (09:21)
--- NOTE | 2022-10-31 09:22 | XRAY Report ---
PROCEDURE: Chest 1 View X-Ray INDICATIONS: cough/SOA TECHNIQUE: One view of the chest was acquired. COMPARISON: None. FINDINGS: Surgical changes and devices: None. Lungs and pleura: No pleural effusions or pneumothorax. Lungs are clear. Mediastinum: Mediastinal contours appear normal. Heart size is normal. Bones and chest wall: No suspicious bony lesions. Overlying soft tissues appear unremarkable. IMPRESSION: No acute cardiopulmonary process. Reviewed by: Jenny Kincaid MD on 10/31/2022 9:21 AM PDT Approved by: Jenny Kincaid MD on 10/31/2022 9:21 AM PDT Station ID: [id number]
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
[2022-10-31 09:46] VITALS: BP 135/70; O2SAT 98
[2022-10-31 10:07] LABS: B. PARAPERTUSSIS- RESP PCR PAN NOT DETECTED; B. PERTUSSIS- RESP PCR PANEL NOT DETECTED; C. PNEUMONIAE- RESP PCR PANEL NOT DETECTED; CORONAVIRUS 229E-RESP PCR NOT DETECTED; CORONAVIRUS HKU1-RESP PCR NOT DETECTED; CORONAVIRUS NL63-RESP PCR NOT DETECTED; CORONAVIRUS OC43-RESP PCR NOT DETECTED; HUMAN METAPNEUMOVIRUS NOT DETECTED; INFLUENZA A H1 2009- RESP PCR DETECTED; INFLUENZA B - RESP PCR PANEL NOT DETECTED; M. PNEUMONIAE- RESP PCR PANEL NOT DETECTED; PARAINFLUENZA VIRUS 1 NOT DETECTED; PARAINFLUENZA VIRUS 2 NOT DETECTED; PARAINFLUENZA VIRUS 3 NOT DETECTED; PARAINFLUENZA VIRUS 4 NOT DETECTED; RHINOVIRUS/ENTEROVIRUS NOT DETECTED; RSV- RESP PCR PANEL NOT DETECTED; SARS-CoV-2 -RESP PCR PANEL NOT DETECTED
== END 2022-10-31 09:35 | disposition home or self-care (01) ==
LOC: ED 07:49
DX: J10.1 Influenza due to other identified influenza virus with other respiratory manifestations (principal); Z20.822 Contact with and (suspected) exposure to COVID-19
CPT/HCPCS: 71045; 87633; 99283; 99284; A9270

== ENCOUNTER 2023-10-06 13:52 | Outpatient (CLI) | payer OTHER ==
--- NOTE | 2023-10-09 09:45 | Mammography Report ---
BILATERAL DIGITAL SCREENING MAMMOGRAM 3D/2D: 10/06/2023 CLINICAL: Routine screening. Comparison is made to exams dated: 09/06/2022 mammogram - [facility], 06/30/2021 [facility], and 09/11/2015 mammogram - outside location. There are scattered areas of fibroglandular density in both breasts (category b / 25%-50% glandular t issue). No significant masses, calcifications, or other findings are seen in either breast. There has been no significant interval change. IMPRESSION: NEGATIVE There is no mammographic evidence of malignancy. A 1 year screening mammogram is recommended. Based on the Tyrer Cuzick model (a risk assessment model) the patient's lifetime risk is 7.1% and her 10 year risk is 2.9%. According to the ACR, ACS, and NCCN guidelines, an annual breast MRI exam heber g with mammogram is recommended if the patient's lifetime risk is 20% or greater. This exam was interpreted at Station ID: [id number]. NOTE: For mammograms, a report in lay terms will be sent to the patient. Approximately 15% of breast malignancies will not be visualized mammographically. In the management of a palpable breast mass, a negative mammogram must not discourage biopsy of a clinically suspicious lesion. Electronically Signed By: Edson morris/nadine:10/06/2023 14:56:47 letter sent: No_Letter ACR BI-RADS Category 1: Negative 3341F PARENCHYMAL PATTERN: (A) - The breast(s) demonstrate(s) scattered fibroglandular densities. BI-RADS CATEGORY: (1) - 1 RECOMMENDATION: (ANNUAL) - Recommend routine annual screening mammography. [id number] 1 year screening LATERALITY: (B)
== END 2023-10-06 13:53 | disposition home or self-care (01) ==
LOC: DI 13:52
PROVIDERS: ATTEND Physician Assistant
DX: Z12.31 Encounter for screening mammogram for malignant neoplasm of breast (principal); R92.323 Mammographic fibroglandular density, bilateral breasts